=== PATIENT | male | born 1985 | race Caucasian/White ===

== ENCOUNTER 2017-09-20 21:58 | Emergency (ER) | payer OTHER ==
[~2017-09-20] VITALS: Ht 180.3 cm; Wt 80.0 kg
[~2017-09-20 21:58] MED LIST: AMOX500T PO; MMW SS
[2017-09-20 22:00] VITALS: BP 151/96; PULSE 99; RESP 18; TEMP 97.6; O2SAT 97
[2017-09-21 00:19] LABS: AUTOMATED NEUTROPHIL # 8.5 TH/MM3 (1.8-7.7); BASOPHIL % 0.4 % (0.0-2.0); EOSINOPHIL # 0.1 TH/MM3 (0-0.4); EOSINOPHIL % 0.9 % (0.0-4.0); HEMATOCRIT 41.6 % (39.0-51.0); HEMOGLOBIN 14.8 GM/DL (13.0-17.0); LYMPH % 12.6 % (9.0-44.0); LYMPHOCYTE # 1.4 TH/MM3 (1.0-4.8); MEAN CELL VOLUME 92.2 FL (80.0-100.0); MEAN CORPUSCULAR HEMOGLOBIN 32.8 PG (27.0-34.0); MEAN CORPUSCULAR HGB CONC 35.6 % (32.0-36.0); MEAN PLATELET VOLUME 8.9 FL (7.0-11.0); MONO % 9.4 % (0.0-8.0); NEUT % 76.7 % (16.0-70.0); PLATELET COUNT 222 TH/MM3 (150-450); RED BLOOD COUNT 4.51 MIL/MM3 (4.50-5.90); RED CELL DISTRIBUTION WIDTH 12.5 % (11.6-17.2); WHITE BLOOD COUNT 11.1 TH/MM3 (4.0-11.0)
[2017-09-21 00:21] LABS: ALKALINE PHOSPHATASE 88 U/L (45-117); ALT (GPT) 18 U/L (12-78); TOTAL BILIRUBIN ADULT 1.1 MG/DL (0.2-1.0)
[2017-09-21 00:31] LABS: ALBUMIN 4.3 GM/DL (3.4-5.0); AST (GOT) 30 U/L (15-37); BICARBONATE 26.2 MEQ/L (21.0-32.0); BLOOD UREA NITROGEN 12 MG/DL (7-18); CALCIUM 9.1 MG/DL (8.5-10.1); CHLORIDE 103 MEQ/L (98-107); CREATININE 1.31 MG/DL (0.60-1.30); GLOMERULAR FILTRATION RATE 63 ML/MIN (>89); GLUCOSE,RANDOM 104 MG/DL (74-106); SODIUM (NA) 138 MEQ/L (136-145)
[2017-09-21 01:49] VITALS: BP 146/57; PULSE 88; RESP 20; TEMP 98; O2SAT 98
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
[2017-09-21 10:35] VITALS: BP 132/52; PULSE 82; RESP 20; TEMP 98.1; O2SAT 98
--- NOTE | 2017-09-21 14:33 | PD ---
Data Data Last Documented VS Vital Signs Date Time Temp Pulse Resp B/P (MAP) Pulse Ox O2 Delivery O2 Flow Rate FiO2 09/21/17 15:57 09/21/17 15:30 99.2 103 18 09/21/17 10:35 98 Room Air Orders Orders Complete Blood Count With Diff (09/20/17 23:02) Comprehensive Metabolic Panel (09/20/17 23:02) Psych Screen (09/20/17 23:02) Drug Screen, Random Urine (09/20/17 23:02) Alcohol (Ethanol) (09/20/17 23:02) Diet Regular Basic (09/21/17 Breakfast) Diet Regular Basic (09/21/17 Lunch) Ed Discharge Order (09/21/17 14:32) Labs Laboratory Tests Test 09/20/17 23:25 White Blood Count 11.1 TH/MM3 Red Blood Count 4.51 MIL/MM3 Hemoglobin 14.8 GM/DL Hematocrit 41.6 % Mean Corpuscular Volume 92.2 FL Mean Corpuscular Hemoglobin 32.8 PG Mean Corpuscular Hemoglobin Concent 35.6 % Red Cell Distribution Width 12.5 % Platelet Count 222 TH/MM3 Mean Platelet Volume 8.9 FL Neutrophils (%) (Auto) 76.7 % Lymphocytes (%) (Auto) 12.6 % Monocytes (%) (Auto) 9.4 % Eosinophils (%) (Auto) 0.9 % Basophils (%) (Auto) 0.4 % Neutrophils # (Auto) 8.5 TH/MM3 Lymphocytes # (Auto) 1.4 TH/MM3 Monocytes # (Auto) 1.0 TH/MM3 Eosinophils # (Auto) 0.1 TH/MM3 Basophils # (Auto) 0.0 TH/MM3 CBC Comment DIFF FINAL Differential Comment Blood Urea Nitrogen 12 MG/DL Creatinine 1.31 MG/DL Random Glucose 104 MG/DL Total Protein 8.0 GM/DL Albumin 4.3 GM/DL Calcium Level 9.1 MG/DL Alkaline Phosphatase 88 U/L Aspartate Amino Transf (AST/SGOT) 30 U/L Alanine Aminotransferase (ALT/SGPT) 18 U/L Total Bilirubin 1.1 MG/DL Sodium Level 138 MEQ/L Potassium Level 3.9 MEQ/L Chloride Level 103 MEQ/L Carbon Dioxide Level 26.2 MEQ/L Anion Gap 9 MEQ/L Estimat Glomerular Filtration Rate 63 ML/MIN Urine Opiates Screen NEG Urine Barbiturates Screen NEG Urine Amphetamines Screen POS Urine Benzodiazepines Screen NEG Urine Cocaine Screen NEG Urine Cannabinoids Screen POS Ethyl Alcohol Level LESS THAN 3 MG/DL MDM Supervised Visit with [facility]: Yes Narrative Course I was asked to see this patient by Cedric MARY for the psychiatric service. This patient was Valle acted for being intoxicated with bizarre behavior last night. He denied any suicidal or homicidal ideation to me now that he is clinically sober. Patient would like to go home. On my examination he is sitting calmly reading a magazine and J pod. There is no indication for continued Valle act status for this patient as he is alert and awake and oriented and has never had any suicidal or homicidal ideation documented. Discussed substance abuse and its dangers including danger to health including , disability, heart and lung problems. He was referred to [facility]. He is stable for discharge. He has no medical complaints at this time. I have lifted his Valle act. Diagnosis Primary Impression: Medical clearance for psychiatric admission Additional Impressions: Polysubstance abuse Substance-induced psychosis Referrals: [facility] Additional Instruction: Avoid illicit drugs as they may kill you, follow-up with your primary care physician or the [facility]. Scripts No Active Prescriptions or Reported Meds Disposition: 01 DISCHARGE HOME Condition: Stable Reid Chaudhry MD Sep 21, 2017 14:33
--- NOTE | 2017-09-21 14:51 | PD ---
History of Present Illness Chief Complaint: Substance induced mood disorder Time Seen by Provider: 14:52 Travel History International Travel<30 Days: No Contact w/Intl Traveler<30days: No Known affected area: No Legal Status Legal Status: Valle Act Valle Act Signed By: Debbie Simmons History of Present Illness: This is a 31-year-old single, white male who presents to this facility under a Valle act by police department for being under the influence of narcotics. Patient has previously been seen at this facility for medical issues only. Reviewed electronic medical record, labs, discuss case with staff. Patient's tox screen positive for amphetamines and cannabinoids. Patient evaluated in his room and J pod. Awake, alert, and oriented. His speech is clear, logical, and organized. His mood is good and his affect is euthymic. He maintains eye contact and answers all questions appropriately. Patient denies any suicidal ideation, homicidal ideation, visual or auditory hallucinations. He is not delusional and shows no signs of being internally stimulated. Patient states that he has never been suicidal or attempted to hurt himself in the past. He reports recently getting out of assisted. He has no complaints at this time. [facility] Past Medical History Diminished Hearing: No Tetanus Vaccination: < 5 Years Past Surgical History Other Surgery: Yes (PLASTIC SURGERY ON FACE) Psychiatric History Psychiatric History Denies Hx Psychiatric Treatment: DENIES History of Inpatient Treatment: No Guns or firearms in home: No Social History Hx Alcohol Use: Yes (SOCIAL) Hx Tobacco Use: Yes (1 PPD) Hx Substance Use: Yes (RAYSHAWN AND MARIJUANA) Substance Use Type: Alcohol, Amphetamines-Stimulants, Synth Opiates-Pain Pills Hx of Substance Use Treatment: Yes Allergies-Medications (Allergen,Severity, Reaction): Coded Allergies: Sulfa (Sulfonamide Antibiotics) (Unverified Allergy, Unknown, UNKNOWN REACTION, 09/21/17) Reported Meds & Prescriptions Reported Meds & Active Scripts Active No Active Prescriptions or Reported Medications Mental Status Examination Appearance: Appropriate Consciousness: Alert Orientation: x4 Motor Activity: Normal gait Speech: Unremarkable Language: Adequate Fund of Knowledge: Adequate Attention and Concentration: Adequate Memory: Unremarkable Mood: Appropriate, Good Affect: Appropriate, Euthymic Thought Process & Associations: Intact Thought Content: Appropriate Hallucination Type: None Delusion Type: None Suicidal Ideation: No Suicidal Plan: No Suicidal Intention: No Homicidal Ideation: No Insight: Adequate Judgment: Adequate MDM Medical Decision Making Medical Record Reviewed: Yes Assessment/Plan 31-year-old single, white, male who presents under Valle act to this facility for being "under the influence of narcotics". Patient has been seen in this facility previously for medical conditions only. He denies any history of mental illness. Patient was recently discharged from group home. Patient is awake, alert, and oriented 4. His speech is clear, logical, and organized. His mood is good and his affect is euthymic. He denies ever having had suicidal ideation , homicidal ideation, visual or auditory hallucinations. He is not delusional at this time. This patient never met Valle act criteria. I presented his case to Dr. Chaudhry who also saw the patient and assessed him, he agrees and so has lifted the Valle act. Patient will be discharged with instructions to follow- up with [facility] for detox as needed. He will be advised to return to this facility if his condition worsens. Orders Orders Complete Blood Count With Diff (09/20/17 23:02) Comprehensive Metabolic Panel (09/20/17 23:02) Psych Screen (09/20/17 23:02) Drug Screen, Random Urine (09/20/17 23:02) Alcohol (Ethanol) (09/20/17 23:02) Diet Regular Basic (09/21/17 Breakfast) Diet Regular Basic (09/21/17 Lunch) Ed Discharge Order (09/21/17 14:32) Results Vital Signs Date Time Temp Pulse Resp B/P (MAP) Pulse Ox O2 Delivery O2 Flow Rate FiO2 09/21/17 10:35 98.1 82 20 132/52 (78) 98 Room Air 09/21/17 01:49 98.0 88 20 146/57 (86) 98 Room Air 09/20/17 22:00 97.6 99 18 151/96 (114) 97 Laboratory Tests Test 09/20/17 23:25 White Blood Count 11.1 Red Blood Count 4.51 Hemoglobin 14.8 Hematocrit 41.6 Mean Corpuscular Volume 92.2 Mean Corpuscular Hemoglobin 32.8 Mean Corpuscular Hemoglobin Concent 35.6 Red Cell Distribution Width 12.5 Platelet Count 222 Mean Platelet Volume 8.9 Neutrophils (%) (Auto) 76.7 Lymphocytes (%) (Auto) 12.6 Monocytes (%) (Auto) 9.4 Eosinophils (%) (Auto) 0.9 Basophils (%) (Auto) 0.4 Neutrophils # (Auto) 8.5 Lymphocytes # (Auto) 1.4 Monocytes # (Auto) 1.0 Eosinophils # (Auto) 0.1 Basophils # (Auto) 0.0 CBC Comment DIFF FINAL Differential Comment Blood Urea Nitrogen 12 Creatinine 1.31 Random Glucose 104 Total Protein 8.0 Albumin 4.3 Calcium Level 9.1 Alkaline Phosphatase 88 Aspartate Amino Transf (AST/SGOT) 30 Alanine Aminotransferase (ALT/SGPT) 18 Total Bilirubin 1.1 Sodium Level 138 Potassium Level 3.9 Chloride Level 103 Carbon Dioxide Level 26.2 Anion Gap 9 Estimat Glomerular Filtration Rate 63 Urine Opiates Screen NEG Urine Barbiturates Screen NEG Urine Amphetamines Screen POS Urine Benzodiazepines Screen NEG Urine Cocaine Screen NEG Urine Cannabinoids Screen POS Ethyl Alcohol Level LESS THAN 3 Diagnosis Primary Impression: Substance induced mood disorder Psychiatrically Cleared: Yes Referrals: [facility] Additional Instructions: Avoid illicit drugs as they may kill you, follow-up with your primary care physician or the [facility]. Prescriptions No Active Prescriptions or Reported Meds Disposition: 01 DISCHARGE HOME Condition: Stable Thania Pedraza Sep 21, 2017 14:51
[2017-09-21 15:30] VITALS: BP 124/86; PULSE 103; RESP 18; TEMP 99.2
== END 2017-09-21 16:04 | disposition home or self-care (01) ==
LOC: NEPD 21:58 → NEPJ 09-21 16:04
DX: F19.159 Other psychoactive substance abuse with psychoactive substance-induced psychotic disorder, unspecified (principal)
CPT/HCPCS: 80053; 80307; 85025; 99283